=== PATIENT | female | born 1985 | race Caucasian/White ===

== ENCOUNTER 2016-07-12 04:03 | Inpatient (IN) | payer OTHER ==
[2016-07-12] MEDS ORDERED: Dibucaine 1% 28.35 GM TUBE PR PRN (05:37)
[2016-07-12] MEDS ORDERED: Acetaminophen TAB* 325 MG PO PRN (05:37)
[2016-07-12] MEDS ORDERED: Witch Hazel PAD* JAR TOPICAL PRN (05:37)
[2016-07-12] MEDS ORDERED: oxyCODONE/Acetamin 5/325 MG* TAB PO PRN (05:37)
[2016-07-12] MEDS: Ibuprofen TAB* 600 MG PO PRN ×3 (06:32→21:09)
[2016-07-12] MEDS: Docusate CAP* 100 MG PO SCH ×2 (12:36→21:06)
[2016-07-13 04:14] VITALS: BP 101/59
[2016-07-13 06:56] LABS: Hematocrit 34 % (35-47); Hemoglobin 11.5 g/dl (12.0-16.0); Mean Corpuscular HGB Conc 34 g/dl (31-36); Mean Corpuscular Hemoglobin 31 pg (27-31); Mean Corpuscular Volume 92 fL (80-97); Mean Platelet Volume 9 um3 (7.4-10.4); Red Blood Count 3.66 10^6/ul (4.0-5.4); Red Cell Distribution Width 13 % (10.5-15); White Blood Count 11.1 10^3/ul (3.5-10.8)
[2016-07-13] MEDS ORDERED: Ferrous Gluconate TAB* 324 MG TAB PO SCH (09:00)
[2016-07-13] MEDS: Docusate CAP* 100 MG PO SCH (09:17)
== END 2016-07-13 11:08 | disposition home or self-care (01) | DRG 560 ==
LOC: MCHOBOUT 04:03 → MCHOB 04:08
PROVIDERS: ADMIT Nurse Practitioner; ATTEND Nurse Practitioner
PROC: 10E0XZZ Delivery of Products of Conception, External Approach (ICD-10-PCS; principal; 2016-07-12)
PROC: 4A1HXCZ Monitoring of Products of Conception, Cardiac Rate, External Approach (ICD-10-PCS; 2016-07-12)
PROC: 0KQM0ZZ Repair Perineum Muscle, Open Approach (ICD-10-PCS; 2016-07-12)
DX: O48.0 Post-term pregnancy (principal); O62.3 Precipitate labor; Z3A.40 40 weeks gestation of pregnancy; Z37.0 Single live birth; Z88.0 Allergy status to penicillin; O70.1 Second degree perineal laceration during delivery
CPT/HCPCS: 36415; 85025; A9270-GY